=== PATIENT | male | born 1965 | race Caucasian/White ===

== ENCOUNTER → 2019-07-27 | Day surgery (SDC) | payer BC ==
[~2019-07-27] MED LIST: IV RINGERS,LACTATED 1000ML 1,000 ML IV SCH; PROPOFOL 0 ML IV ONE
[2019-07-27 12:53] VITALS: BP 105/55
--- NOTE | 2019-07-27 13:10 | HP ---
ADMIT DATE: 07/27/2019 UPDATED HISTORY AND PHYSICAL REFERRING PHYSICIAN: Raulito Delgado MD REASON FOR CONSULTATION: History of colonic polyps. HISTORY OF PRESENT ILLNESS: A 53-year-old male whose past medical history significant for hypertension, history of colonic polyps, seen for surveillance exam. Bowel habits are regular without diarrhea or constipation. There has been no melena and/or hematochezia. Weight and appetite are stable. He is otherwise without additional complaints. PAST MEDICAL HISTORY: Hypertension, colonic polyps. ALLERGIES: None. MEDICATIONS: None. FAMILY AND SOCIAL HISTORY: Significant for MIs with multiple family members, hypertension with mother and 2 siblings, breast cancer with siblings, esophageal cancer with his father. PAST SURGICAL HISTORY: Shoulder surgery and tonsillectomy. SOCIAL HISTORY: He is a smoker and drinker. FAMILY HISTORY: Noncontributory. REVIEW OF SYSTEMS: Per records. PHYSICAL EXAMINATION: GENERAL: Reveals a well-nourished, well-developed male who is alert, cooperative, in no acute distress. VITAL SIGNS: Temp 97.5, pulse 70, respirations 20. HEENT: Reveals normocephalic, atraumatic head. Pupils and extraocular muscles are not tested. Sclerae anicteric. NECK: Supple. LUNGS: Clear. CARDIOVASCULAR: Reveals an S1, S2 without S3, S4 or appreciable murmur. ABDOMEN: Reveals a soft abdomen, normal bowel sounds, without appreciable hepatosplenomegaly. EXTREMITIES: Reveals no cyanosis, clubbing or edema. IMPRESSION AND PLAN: History of colonic polyps. Surveillance exam is recommended. Risks and benefits were discussed with the patient including risk of hemorrhage and perforation and is willing to proceed. REINA SIMEON MD DR: LUIZA/evaristo JOB#: [id number] / [id number] RAULITO Roberson MD
== END ==
LOC: SURG 10:32
PROVIDERS: ATTEND Internal Medicine Gastroenterology
DX: Z12.11 Encounter for screening for malignant neoplasm of colon (principal); K64.0 First degree hemorrhoids; I10 Essential (primary) hypertension; E78.00 Pure hypercholesterolemia, unspecified; K21.9 Gastro-esophageal reflux disease without esophagitis; E66.9 Obesity, unspecified; Z68.38 Body mass index [BMI] 38.0-38.9, adult; Z87.891 Personal history of nicotine dependence; Z86.010 Personal history of colon polyps; Z80.0 Family history of malignant neoplasm of digestive organs; Z87.39 Personal history of other diseases of the musculoskeletal system and connective tissue
CPT/HCPCS: 45378; J2704